=== PATIENT | female | born 1995 | race Caucasian/White ===

== ENCOUNTER 2019-10-12 19:16 | Outpatient (CLI) | payer OTHER ==
[~2019-10-12] VITALS: Ht 160 cm; Wt 67.7 kg
[2019-10-12 20:01] VITALS: BP 86/48
[2019-10-12 20:11] VITALS: BP 98/57
--- NOTE | 2019-10-13 07:18 | HPE ---
DATE OF ADMISSION: 10/12/2019 24-year-old, 1, para 0, last menstrual period (LMP) 04/11/2019, estimated date of confinement (EDC) 01/05/2020, at 20 weeks of gestation. History is that her mucus plug came out as she was in a washroom post intercourse. She had no vaginal bleeding. No contractions. Labs are A positive, HIV negative, hepatitis negative, RPR negative, rubella immune. Varicella immune. Pap was normal. Urine was negative. Gonorrhea and chlamydia are negative. There is no glucose tolerance at 28 weeks or early glucose. Her BMI is 21. On examination, no distress. Category 1 strip. Good accelerations. No contractions. Moderate variability. Sterile speculum examination, clean vagina. Cervix is posterior coming up anteriorly. No bleeding. No discharge. Cervix is closed. There is some increased vascularity to the cervical transformation zone. Ultrasound was performed. Breech presentation with the head to the mother's right. Feet are in the cervix. Amniotic fluid index (KRISTA) is in two quadrants 9.46. Cervix measurement length is 2.83. Good movement was noted. Cardiac activity was noted and limb movement was very active. Cervix is closed. No funneling. Blood pressure 86/48, temperature 96.9, respiratory rate 16, pulse 65. Urine 1.025, pH 6 and negative. The patient was counseled regarding premature rupture of membranes, bleeding, contractions. She has an appointment with [facility] next week, which she is planning to keep that. She was discharged undelivered.
== END 2019-10-12 20:45 | disposition home or self-care (01) ==
LOC: M LDO 19:16
PROVIDERS: ATTEND Obstetrics & Gynecology
DX: O26.892 Other specified pregnancy related conditions, second trimester (principal); N89.8 Other specified noninflammatory disorders of vagina; O32.1XX2 Maternal care for breech presentation, fetus 2; Z3A.20 20 weeks gestation of pregnancy
CPT/HCPCS: 59025; 76815; G0378; G0463

== ENCOUNTER 2020-01-11 18:03 | Inpatient (IN) | payer OTHER ==
[~2020-01-11] VITALS: Ht 160 cm; Wt 78.1 kg
[2020-01-11] MEDS ORDERED: PNV1TAB6 PO (18:35)
[2020-01-11 18:58] VITALS: BP 128/79
[2020-01-11 19:38] LABS: HEMATOCRIT 35.3 % (36.0-47.0); HEMOGLOBIN 11.7 g/dl (12.0-15.5); MEAN CORPUSCULAR HEMOGLOBIN 27.7 pg (27.0-33.0); MEAN CORPUSCULAR HGB CONC 33.1 g/dl (32.0-36.5); MEAN CORPUSCULAR VOLUME 83.6 fl (80.0-96.0); PLATELET COUNT, AUTOMATED 178 10^3/uL (150-450); RED BLOOD COUNT 4.22 10^6/uL (4.00-5.40); WHITE BLOOD COUNT 12.3 10^3/uL (4.0-10.0)
--- NOTE | 2020-01-11 19:38 | HPEPDOC ---
Obstetrical History & Physical General Date of Admission Jan 11, 2020 at 18:45 History of Present Illness [id number] dustin [id number] @40+6, A+, GBS- presenting with c/o increasing frequency of contractions since 299 Chief Complaint: Contractions, term Information Provided By: Patient Age: 24 : 1 Term: 0 Pre-term: 0 Abortions: 0 Livin Care Care: Good Care Dating Final EDC: Jan 05, 2020 Final EDC for Daily Update: Jan 05, 2020 Final EDC by: 1st trimester (US) LMP: Apr 11, 2019 Weeks + Days: 40 (+6) Estimated Date of Confinement: Jan 05, 2020 EGA at Admission: 40 (+6) Antepartum Course Diagnos(e)s Excessive weight 48# gain in , otherwise uncomplicated course Height (inches): 63 Pre- weight (lbs.): 119 Admission Weight (lbs.): 167 Change in Weight (lbs.): 48 Past Medical History Past Obstetrical History : Past Obstetrical History: Primgravida [employer] History: No pertinent history Past Medical History Medical History denies Surgical History: [place] teeth Family History Significant Family History: Diabetes, Hypertension Social History Marital Status: Family situation: Spouse/partner home Psychosocial History: No pertinent psych hx * Smoker: non-smoker Alcohol: Denies Abuse Violence Screening Have you been hit/kicked/slapp: No Have you been sexually assault: No Imunizations Tdap status: current Influenza Status: current Allergies Coded Allergies: No Known Allergies (Unverified , 10/12/19) Medications Scheduled Vit,Calc76/Iron/Folic (Pnv 29-1 Tablet) 1 Each Tablet, 1 TAB PO DAILY Physical Examination Physical Examination GENERAL: Alert and oriented times three. BREAST: . ABDOMEN: Gravid and non-tender to touch. FETUS: Is vertex (VTX) by sterile vaginal examination (SVE), fetus is vertex (VTX) by Malik. HEART RATE: Regular rate and rhythm. LUNGS: Clear to auscultation (CTA). EXTREMITIES: No edema. No clonus. Deep tendon reflexes (DTRs) + . Vital Signs/I&O Vital Signs Date Time Temp Pulse Resp B/P (MAP) Pulse Ox O2 Delivery O2 Flow Rate FiO2 01/11/20 18:58 97.6 72 18 128/79 (95) Laboratory Data 24H LABS Laboratory Tests 2 01/11/20 18:48: Serology Scanned Report Hepatitis B Testing Assessment/Plan Assessment is a -year-old (G) para (P)--- at + weeks by -week ultrasound. Presents to Labor and Delivery (L&D) . Plan Admit and orient. [place] Room Worker and consent. Diet: . Group B Streptococcus (GBS) [negative]. Labs and intravenous (IV) per unit protocol. Counseled on Pitocin and induction of labor (IOL). Lactated Ringers (LR): Bolus mL, then at mL/hr. Anticipate [normal spontaneous delivery ()]. C-S as appropriate. CAT WILLINGHAM CNM Jan 11, 2020 19:28
--- NOTE | 2020-01-11 19:48 | IPNPDOC ---
Obstetrical Progress Note Date of Service Jan 11, 2020 Subjective [id number] dustin [id number] @40+6, A+, GBS- presenting with c/o increasing frequency of contractions since 299 Objective Vital Signs Date Time Temp Pulse Resp B/P (MAP) Pulse Ox O2 Delivery O2 Flow Rate FiO2 01/11/20 18:58 97.6 72 18 128/79 (95) Assessment Heart Rate (FHR): 135 Variability: Minimal Accelerations: Positive Decelerations: None Heart Rate Tracing: Category I Tocometer Contractions: Yes Frequency: regular (every 3-4 min) Sterile Vaginal Examination Dilation: 4 cm Effacement (%): 80% Station: -2 Cervical Consistency: Soft Cervical Position: Middle Postion/Presentation: Cephalic presentation Assessment and Plan Age: 24 : 1 Term: 0 Pre-term: 0 Abortions: 0 Livin EGA at Admission: 40 (+6) Status: Reassuring Group B Streptococcus: Negative Anticipate: Vaginal Delivery Additional Comments Reviewed consents for blood products if needed and labor consents with expressed understanding. Desires epidural for labor pain as needed, infant skin to skin after with delayed cord clamping, planning to breastfeed. Admit to labor and delivery, start IV, CBC, type and screen, LR @125ml/hr, continuous efm x2, monitor for change in or maternal status, encourage maternal movement, May have epidural as desired, anticipate vaginal delivery. CAT WILLINGHAM CNM Jan 11, 2020 19:48
[2020-01-11] MEDS: LR 1,000 ML IV SCH (20:05)
[2020-01-11] MEDS ORDERED: diphenhydrAMINE 50MG/ML VIAL (J1200) IV PRN (20:49)
[2020-01-11] MEDS ORDERED: FENTANYL/ROPIVACAINE/NACL BAG 100 ML EPIDURAL SCH (20:49)
[2020-01-11] MEDS ORDERED: REFRIGERATOR IV KEYS XX PRN (20:49)
[2020-01-11] MEDS ORDERED: EPIDURAL/PCA KEYS XX PRN (20:49)
[2020-01-11] MEDS ORDERED: EPIDURAL COMMENT XX SCH (20:49)
[2020-01-11] MEDS ORDERED: LACTATED RINGER'S 1000 ML IV PRN (20:49)
[2020-01-11] MEDS ORDERED: ePHEDrine SULFATE 25 MG/5 ML(5MG/ML) SYRINGE IV PRN (20:49)
[2020-01-11] MEDS ORDERED: NALOXONE INJ 0.4MG/1ML VIAL (J2310 PER 1MG) IV PRN (20:49)
[2020-01-11] MEDS ORDERED: ONDANSETRON 4MG/2ML VIAL IV PRN (20:49)
[2020-01-11] MEDS ORDERED: FENTANYL 2MCG/ML ROPIVACAINE 0.2% IN 0.9% NACL 100ML IVBAG As Ordered ONE (21:01)
--- NOTE | 2020-01-11 22:01 | IPNPDOC ---
Obstetrical Progress Note Date of Service Jan 11, 2020 Subjective 24yo @40+6 states beginning to feel more comfortable on epidural anesthesia Objective Vital Signs Date Time Temp Pulse Resp B/P (MAP) Pulse Ox O2 Delivery O2 Flow Rate FiO2 01/11/20 18:58 97.6 72 18 128/79 (95) Assessment Heart Rate (FHR): 130 Variability: Moderate Accelerations: Positive Decelerations: None Heart Rate Tracing: Category I Tocometer Contractions: Yes Frequency: irregular (every 3-5 min) Sterile Vaginal Examination Dilation: 5 cm (-6) Effacement (%): 80% Station: -2 Cervical Consistency: Soft Cervical Position: Posterior Postion/Presentation: Cephalic presentation Assessment and Plan Age: 24 : 1 Term: 0 Pre-term: 0 Abortions: 0 Livin EGA at Admission: 40 (+6) Status: Reassuring Group B Streptococcus: Negative Anticipate: Vaginal Delivery Additional Comments LR @125mL/hr, continuous efm x2, encourage frequent maternal position changes, monitor for change in or maternal status, evaluate for change as indicated, consider AROM with next exam, anticipate vaginal delivery CAT WILLINGHAM CNM Jan 11, 2020 22:01
[2020-01-12] MEDS ORDERED: OXYTOCIN 30 UNITS IN 0.9% NaCl 500ML IV BAG (J2590) As Ordered ONE (01:47)
--- NOTE | 2020-01-12 02:20 | IPNPDOC ---
Obstetrical Progress Note Date of Service Jan 12, 2020 Subjective Pt states feeling occasional pressure Objective Vital Signs Date Time Temp Pulse Resp B/P (MAP) Pulse Ox O2 Delivery O2 Flow Rate FiO2 01/11/20 18:58 97.6 72 18 128/79 (95) Assessment Heart Rate (FHR): 125 Variability: Minimal to moderate Accelerations: Positive Decelerations: Early Heart Rate Tracing: Category II Tocometer Contractions: Yes (every 2-3 min) Strength: palpated as strong Sterile Vaginal Examination Dilation: 9 cm Effacement (%): 100% Station: 0 Cervical Consistency: Soft Cervical Position: Middle Postion/Presentation: Cephalic presentation Assessment and Plan Age: 24 : 1 Term: 0 Pre-term: 0 Abortions: 0 Livin Weeks & Days 41+0 Status: Reassuring Group B Streptococcus: Negative Anticipate: Vaginal Delivery Additional Comments Sary care provided for continued clear amniotic fluid and pt assisted to reposition. LR@125 mL/hr, continuous efm x2, monitor for change in or maternal status, evaluate as indicated, anticipate vaginal delivery CAT WILLINGHAM CNM Jan 12, 2020 02:20
[2020-01-12] MEDS: LR 1,000 ML IV SCH (02:54)
[2020-01-12] MEDS ORDERED: OXYTOCIN DRIP 30 UNITS in IV 1 EA IV SCH (04:37)
[2020-01-12] MEDS ORDERED: DIBUCAINE 1% OINTMENT 30GM TOP PRN (04:45)
[2020-01-12] MEDS ORDERED: MEASLES,MUMPS,RUBELLA VACCINE INJ (MMR-II) (90707) SC SCH (04:45)
[2020-01-12] MEDS ORDERED: IBUPROFEN 600MG TAB PO PRN (04:45)
[2020-01-12] MEDS ORDERED: ACETAMINOPHEN TAB 650MG DOSE (2X325MG) PO PRN (04:45)
[2020-01-12] MEDS ORDERED: DOCUSATE SODIUM 100 MG CAP PO PRN (04:45)
--- NOTE | 2020-01-12 04:58 | DNPDOC ---
[facility] Delivery Note Delivery Note DATE OF DELIVERY: [12Jan2020] PREDELIVERY DIAGNOSIS: [41]-[0]/7 weeks' gestation and labor. POST DELIVERY DIAGNOSIS: Delivered. PROCEDURE: Spontaneous vaginal delivery WOOD BOX MAKER: ADRIANNE Willingham ANESTHESIA: [epidural]. ESTIMATED BLOOD LOSS: [350] mL. FINDINGS: [8] pound [4] ounce [male] , Score [9]/[9], nuchal cord times [0]. DELIVERY SUMMARY: Patient is a [24]-year-old [1] now para [1]-[0]-[0]-[1] who was admitted to labor and delivery for active labor at term. Lenora was found to be C/C/+2 and made brisk progress with maternal pushing efforts to in JOAQUÍN. No nuchal cord was noted after delivery of the head. The right anterior shoulder delivered easily followed by the posterior shoulder and corpus. The male infant "Deon" was placed immediately skin to skin on the maternal abdomen where he was dried and stimulated to cry. Pitocin infusion was opened. The cord was clamped x 2 by the CNAnnamaria after pulsation ceased and cut by the FOB. The placenta delivered spontaneously in Hilario presentation with small bleeding and the fundus immediately firmed. Examination of the perineum revealed a shallow second degree laceration which was repaired using 3-[address] with the [place] method. The cervix was swept for several clots and the fundus massaged until firm. Mother and baby entered the recovery phase in stable condition skin to skin with breast feeding initiated. CAT WILLINGHAM CNM Jan 12, 2020 04:57
[2020-01-12] MEDS: IBUPROFEN 800 MG TAB PO PRN ×2 (06:12→17:32)
[2020-01-12] MEDS: ACETAMINOPHEN 500 MG TAB PO PRN ×2 (06:12→13:20)
[2020-01-12 06:48] VITALS: BP 114/72
[2020-01-12] MEDS: PRENATAL VITAMINS CHEWABLE TABLET PO SCH (07:35)
[2020-01-12 17:44] VITALS: BP 110/63
[2020-01-13] MEDS: ACETAMINOPHEN 500 MG TAB PO PRN ×2 (01:55→20:05)
[2020-01-13] MEDS: IBUPROFEN 800 MG TAB PO PRN ×2 (03:35→16:10)
[2020-01-13 06:00] VITALS: BP 94/52
--- NOTE | 2020-01-13 07:55 | IPNPDOC ---
Progress Note Date of Service: Jan 13, 2020 Day#: 1 Progress Note SUBJECT: 24yo PPD#1 status post uncomplicated spontaneous vaginal delivery at 41+0/7 weeks'. She has been ambulating, voiding spontaneously without issue and tolerating regular diet. Breast feeding without issue using a nipple shield for assistance. Reports lochia is decreasing. Patient is ambulating well. Reports pelvic/vulvar pain that is controlled with pain medications. OBJECTIVE: VITAL SIGNS: Within normal limits, afebrile. Alert and oriented times three. RESP: no exaggerated respiratory effort appreciated CARDS: well-perfused Abdomen: Fundus firm at U-2. Soft, NTTP. : Scant lochia, minimal edema Ext: no edema, no calf tenderness ASSESSMENT: 24yo status PPD#1 s/p over 2nd degree lac. Vitals within normal limits, afebrile, hemodynamically stable with no evidence of infection. PLAN: 1. Discharge to home tomorrow with 2. Continue current pain mgmt. 3. Encourage breast feeding and ambulation. 4. Encourage regular diet as tolerated 5. Routine PP visit in 6 weeks in clinic. 6. Discussed return precautions at length. VS, I&O, 24H, Fishbone Vital Signs/I&O Vital Signs Date Time Temp Pulse Resp B/P (MAP) Pulse Ox O2 Delivery O2 Flow Rate FiO2 01/13/20 06:00 97.5 53 16 94/52 (66) 01/12/20 17:44 98 GIRMA ARCHER DO Jan 13, 2020 07:54
[2020-01-13] MEDS ORDERED: INFLUENZA QUADRIVALENT PF VACCINE 0.5ML SYRINGE IM ONE (09:00)
[2020-01-13] MEDS: PRENATAL VITAMINS CHEWABLE TABLET PO SCH (09:36)
[2020-01-14] MEDS: IBUPROFEN 800 MG TAB PO PRN (05:33)
[2020-01-14] MEDS: PRENATAL VITAMINS CHEWABLE TABLET PO SCH (08:58)
--- NOTE | 2020-01-17 11:47 | IPN ---
DATE: 01/12/2020 Patient and requested circumcision of their male after discussing risks and benefits of the circumcision, the medical and non-medical indications, the penile block and aftercare, expressed understanding of penile block aftercare and bleeding. Signed a consent form. Had 20-minute discussion, all questions were answered. We await clearance by the teletray operator. BASHIR
== END 2020-01-14 10:40 | disposition home or self-care (01) | DRG 807 ==
LOC: M LDO 18:03 → M LDI 18:45 → M OBS 01-12 05:58
PROVIDERS: ADMIT Registered Nurse; ATTEND Registered Nurse
PROC: 10E0XZZ Delivery of Products of Conception, External Approach (ICD-10-PCS; principal; 2020-01-12)
PROC: 0KQM0ZZ Repair Perineum Muscle, Open Approach (ICD-10-PCS; 2020-01-12)
DX: O48.0 Post-term pregnancy (principal); Z37.0 Single live birth; Z3A.40 40 weeks gestation of pregnancy; O70.1 Second degree perineal laceration during delivery

== ENCOUNTER 2021-04-16 18:12 | Emergency (ER) | payer OTHER ==
[~2021-04-16] VITALS: Ht 160 cm; Wt 56.6 kg
[~2021-04-16 18:12] MED LIST: PNV1TAB6 PO
[2021-04-16 18:13] VITALS: BP 99/53
[2021-04-16 19:14] LABS: BASO % 0.5 % (0.0-1.0); EOS # 0.3 10^3/uL (0.0-0.5); EOS % 3.5 % (0.0-3.0); HEMATOCRIT 37.4 % (36.0-47.0); HEMOGLOBIN 12.4 g/dl (12.0-15.5); LYMPH % 37.1 % (24.0-44.0); MEAN CORPUSCULAR HEMOGLOBIN 27.2 pg (27.0-33.0); MEAN CORPUSCULAR HGB CONC 33.2 g/dl (32.0-36.5); MONO # 0.6 10^3/uL (0.0-0.8); MONO % 7.8 % (2.0-8.0); NEUTROPHILS # 4.1 10^3/uL (1.5-8.5); PLATELET COUNT, AUTOMATED 242 10^3/uL (150-450); RED BLOOD COUNT 4.56 10^6/uL (4.00-5.40)
[2021-04-16 19:41] LABS: HCG, SERUM QUALITATIVE NEGATIVE (NEGATIVE)
[2021-04-16 19:43] LABS: ALBUMIN 4.1 GM/DL (3.2-5.2); ALT/SGPT 28 U/L (12-78); BILIRUBIN,DIRECT < 0.1 MG/DL (0.0-0.2); BILIRUBIN,TOTAL 0.1 MG/DL (0.2-1.0); BLOOD UREA NITROGEN 11 MG/DL (7-18); CALCIUM LEVEL 9.6 MG/DL (8.5-10.1); CARBON DIOXIDE LEVEL 24 MEQ/L (21-32); CHLORIDE LEVEL 108 MEQ/L (98-107); CREATININE FOR GFR 0.68 MG/DL (0.55-1.30); GLOMERULAR FILTRATION RATE > 60.0 (>60); GLUCOSE, FASTING 101 MG/DL (70-100); LIPASE 123 U/L (73-393); SODIUM LEVEL 140 MEQ/L (136-145); TOTAL PROTEIN 7.7 GM/DL (6.4-8.2)
== END 2021-04-17 01:31 | disposition left against medical advice (07) ==
LOC: M ED 18:12
DX: Z53.21 Procedure and treatment not carried out due to patient leaving prior to being seen by health care provider (principal)

== ENCOUNTER → 2023-11-30 | Outpatient (REF) | payer OTHER, BC ==
[2023-12-02 11:20] LABS: HPV APTIMA Not Detected (Not Detected)
== END ==
LOC: M LAB REF 17:18
PROVIDERS: ATTEND Registered Nurse
DX: Z12.4 Encounter for screening for malignant neoplasm of cervix (principal)
CPT/HCPCS: 87624; G0123

== ENCOUNTER 2024-03-15 05:57 | Day surgery (SDC) | payer OTHER ==
[~2024-03-15] VITALS: Ht 160 cm; Wt 58.0 kg
[~2024-03-15 05:57] MED LIST changes: +ZONI50CA11 PO
[2024-03-15 06:25] LABS: HEMATOCRIT 38.2 % (36.0-47.0); HEMOGLOBIN 12.5 g/dl (12.0-15.5); MEAN CORPUSCULAR HEMOGLOBIN 27.2 pg (27.0-33.0); MEAN CORPUSCULAR HGB CONC 32.7 g/dl (32.0-36.5); MEAN CORPUSCULAR VOLUME 83.2 fl (80.0-96.0); PLATELET COUNT, AUTOMATED 221 10^3/uL (150-450); RED BLOOD COUNT 4.59 10^6/uL (4.00-5.40); WHITE BLOOD COUNT 9.3 10^3/uL (4.0-10.0)
[2024-03-15] MEDS ORDERED: MIDAZOLAM INJ 2MG/2ML VIAL As Ordered ONE (07:11)
[2024-03-15] MEDS ORDERED: fentaNYL 100 MCG/2 ML INJECTION As Ordered ONE (07:11)
[2024-03-15] MEDS ORDERED: propofoL 200 MG/20 ML VIAL As Ordered ONE (07:13)
[2024-03-15] MEDS ORDERED: ROCURONIUM BROMIDE 50MG/5ML VIAL As Ordered ONE (07:13)
[2024-03-15] MEDS ORDERED: ONDANSETRON 4MG 2ML VIAL As Ordered ONE (08:10)
[2024-03-15] MEDS ORDERED: SUGAMMADEX SODIUM 500 MG/5 ML VIAL (BRIDION) As Ordered ONE (08:15)
[2024-03-15] MEDS: SILVER NITRATE APPLICATOR (1 = QTY 10) As Ordered ONE (08:22)
[2024-03-15] MEDS ORDERED: oxyCODONE 5MG TAB PO PRN (08:30)
[2024-03-15] MEDS ORDERED: fentaNYL 100 MCG/2 ML INJECTION IV PRN (08:30)
[2024-03-15] MEDS ORDERED: METOCLOPRAMIDE INJ 10MG/2ML VIAL IV PRN (08:30)
[2024-03-15] MEDS ORDERED: diphenhydrAMINE 50MG/ML VIAL IV PRN (08:30)
[2024-03-15] MEDS ORDERED: HYDROMORPHONE HCL 0.5 MG/ 0.5 ML SYRINGE IV PRN (08:30)
[2024-03-15] MEDS ORDERED: ONDANSETRON 4MG 2ML VIAL IV PRN (08:30)
[2024-03-15] MEDS ORDERED: MEPERIDINE 25 MG/ML 1ML VIAL IV PRN (08:30)
[2024-03-15] MEDS ORDERED: PERC5TAB12 PO (08:40)
[2024-03-15] MEDS: KETOROLAC 30 MG/ML 1ML VIAL IV ONE (09:35)
[2024-03-15 10:38] VITALS: BP 109/68; TEMP 97; O2SAT 99
== END 2024-03-15 10:39 | disposition home or self-care (01) ==
LOC: M SDC 05:57
PROVIDERS: ATTEND Obstetrics & Gynecology
DX: Z30.2 Encounter for sterilization (principal); N73.6 Female pelvic peritoneal adhesions (postinfective); N80.00 Endometriosis of the uterus, unspecified; G43.909 Migraine, unspecified, not intractable, without status migrainosus; Z79.899 Other long term (current) drug therapy
CPT/HCPCS: 36415; 58661; 81025; 85027; 86850; 86900; 86901; 88302; J0665; J1100; J1885; J2250; J2405; J3010